=== PATIENT | male | born 1990 | race Caucasian/White ===

== ENCOUNTER 2022-05-26 18:07 | Inpatient (IN) | payer MEDICAID ==
[~2022-05-26] VITALS: Ht 180.3 cm; Wt 70.3 kg
[~2022-05-26 18:07] MED LIST: QUET100T PO; QUET200T30 PO; VENL-68 PO
[2022-05-26] MEDS ORDERED: HALOPERIDOL 5 MG TABLET PO PRN (22:15)
[2022-05-26] MEDS ORDERED: INFLUENZA VIRUS VACCINE QVS 2022-23 (6MO+)/PF 60 MCG/0.5 ML SYRINGE IM. ONE (22:30)
[2022-05-26] MEDS: LORazepam 2 MG TABLET PO PRN (22:54)
[2022-05-26] MEDS: ZOLPIDEM TARTRATE 10 MG TABLET PO PRN (22:54)
[2022-05-26 23:53] VITALS: BP 106/63
[2022-05-26 23:54] VITALS: BP 106/63
[2022-05-27] MEDS ORDERED: MIRT-92 PO (08:35)
[2022-05-27] MEDS ORDERED: OLAN20TA35 PO (08:35)
[2022-05-27] MEDS: OLANZapine 10 MG TABLET PO SCH ×2 (09:04→20:34)
[2022-05-27] MEDS: LORazepam 2 MG TABLET PO PRN ×2 (09:04→16:22)
[2022-05-27 09:09] VITALS: BP 116/74
[2022-05-27 09:51] VITALS: BP 116/74
[2022-05-27] MEDS ORDERED: GuaiFENesin/D-METHORPHAN [SUGAR-FREE] 200-20MG/10 ML SYRUP UDCUP PO PRN (10:15)
[2022-05-27] MEDS ORDERED: PHENAZOPYRIDINE HCL 100 MG TABLET PO PRN (10:15)
[2022-05-27] MEDS ORDERED: CloNIDine HCL 0.1 MG TABLET PO PRN (10:15)
[2022-05-27] MEDS ORDERED: MAG HYDROX/AL HYDROX/SIMETH ES 30 ML SUSPENSION UDCUP PO PRN (10:15)
[2022-05-27] MEDS ORDERED: LOPERAMIDE HCL 2 MG CAPSULE PO PRN (10:15)
[2022-05-27] MEDS ORDERED: DOCUSATE SODIUM 100 MG CAPSULE PO PRN (10:15)
[2022-05-27] MEDS ORDERED: IBUPROFEN 400 MG TABLET PO PRN (10:15)
[2022-05-27] MEDS ORDERED: MAGNESIUM HYDROXIDE SUSPENSION 30 ML UDCUP PO PRN (10:15)
[2022-05-27] MEDS ORDERED: ACETAMINOPHEN 325 MG TABLET PO PRN (10:15)
[2022-05-27] MEDS ORDERED: PETROLATUM,WHITE 28 GM JELLY TP PRN (10:15)
[2022-05-27] MEDS ORDERED: ALBUTEROL SULFATE HFA 90 MCG/PUFF 8 GM INHALER IH PRN (10:15)
[2022-05-27] MEDS ORDERED: NICOTINE 14 MG/24 HOUR PATCH TD PRN (10:15)
[2022-05-27] MEDS ORDERED: ONDANSETRON HCL 4 MG TABLET PO PRN (10:15)
[2022-05-27] MEDS: CEPHALEXIN MONOHYDRATE 500 MG CAPSULE PO SCH ×2 (16:22→23:21)
[2022-05-27] MEDS: TOLNAFTATE 1% TP SCH (17:00)
[2022-05-27] MEDS: MIRTAZAPINE 15 MG TABLET PO SCH (20:34)
[2022-05-27] MEDS: ZOLPIDEM TARTRATE 10 MG TABLET PO PRN (20:34)
[2022-05-27 20:43] VITALS: BP 118/75
[2022-05-28] MEDS: LORazepam 2 MG TABLET PO PRN ×3 (06:12→17:34)
[2022-05-28 07:03] LABS: BASOPHILS % (AUTO) 1.1 % (0.0-2.0); EOSINOPHILS % (AUTO) 4.5 % (1.0-6.0); HEMATOCRIT 39.4 % (41-53); HEMOGLOBIN 13.1 g/dL (13.5-17.5); LYMPHOCYTES % (AUTO) 49.1 % (22.0-44.0); MEAN CORPUSCULAR HEMOGLOBIN 30.1 pg (26.0-34.0); MEAN CORPUSCULAR HGB CONC 33.3 G/dL (31.0-37.0); MEAN CORPUSCULAR VOLUME 90 fL (80-100); MONOCYTES # (AUTO) 0.4 K/uL (0.1-1.0); MONOCYTES % (AUTO) 6.7 % (2.0-9.0); NEUTROPHILS # (AUTO) 2.4 K/uL (1.8-7.7); NEUTROPHILS % (AUTO) 38.6 % (40.0-70.0); PLATELET COUNT (AUTO) 319 K/uL (150-450); RED BLOOD CELL COUNT(AUTO) 4.36 MIL/uL (4.50-5.90); RED CELL DISTRIBUTION WIDTH 13.4 % (11.5-14.5)
[2022-05-28 07:17] LABS: HEMOGLOBIN A1C 5.1 % (3.8-5.6)
[2022-05-28 07:31] LABS: ALANINE AMINOTRANSFERASE 35 U/L (12-78); ALBUMIN 3.3 g/dL (3.4-5.0); ALKALINE PHOSPHATASE 66 U/L (46-116); ANION GAP 4 mmol/L (8-16); ASPARTATE AMINOTRANSFERASE 11 U/L (15-37); BILIRUBIN,TOTAL 0.1 mg/dL (0.1-1.0); CALCIUM, TOTAL 8.7 mg/dL (8.8-10.5); CARBON DIOXIDE 30 mmol/L (22-29); CHLORIDE 107 mmol/L (98-107); CHOLESTEROL 148 mg/dL (131-200); CREATININE 0.75 mg/dL (0.60-1.30); FREE T4 (FREE THYROXINE) 1.17 ng/dL (0.76-1.46); GLUCOSE,RANDOM 92 mg/dL (70-110); HDL CHOLESTEROL 49 mg/dL (40-60); LDL CHOL (CALC.) 92 mg/dL (0-130); POTASSIUM 4.2 mmol/L (3.5-5.1); SODIUM SERUM 141 mmol/L (136-145); THYROID STIMULATING HORMONE 0.94 uIU/mL (0.36-3.74); TOTAL PROTEIN, SERUM 6.5 g/dL (6.4-8.2); TRIGLYCERIDES 37 mg/dL (15-150); UREA NITROGEN, BLOOD 13 mg/dL (7-18)
[2022-05-28 07:32] LABS: GLOMERULAR FILTR. RATE CALC > 60 mL/min (>60)
[2022-05-28] MEDS: CEPHALEXIN MONOHYDRATE 500 MG CAPSULE PO SCH ×2 (08:27→16:43)
[2022-05-28] MEDS: OLANZapine 10 MG TABLET PO SCH ×2 (08:27→20:25)
[2022-05-28] MEDS: TOLNAFTATE 1% TP SCH ×2 (09:15→16:44)
[2022-05-28 16:36] LABS: GLUCOMETER DEV NAME(LOC) POC.BV
[2022-05-28] MEDS: ZOLPIDEM TARTRATE 10 MG TABLET PO PRN (20:26)
[2022-05-28] MEDS: MIRTAZAPINE 15 MG TABLET PO SCH (20:26)
[2022-05-28 21:17] VITALS: BP 100/61
[2022-05-29] MEDS: CEPHALEXIN MONOHYDRATE 500 MG CAPSULE PO SCH ×3 (02:15→16:18)
[2022-05-29] MEDS: LORazepam 2 MG TABLET PO PRN ×4 (02:18→20:16)
[2022-05-29] MEDS: OLANZapine 10 MG TABLET PO SCH ×2 (08:34→20:15)
[2022-05-29] MEDS: TOLNAFTATE 1% TP SCH ×2 (08:34→16:18)
[2022-05-29 10:32] VITALS: BP 114/61
[2022-05-29] MEDS: MIRTAZAPINE 15 MG TABLET PO SCH (20:16)
[2022-05-29] MEDS: ZOLPIDEM TARTRATE 10 MG TABLET PO PRN (20:16)
[2022-05-29 22:44] VITALS: BP 117/60
[2022-05-30] MEDS: CEPHALEXIN MONOHYDRATE 500 MG CAPSULE PO SCH ×4 (00:03→16:35)
[2022-05-30] MEDS: OLANZapine 10 MG TABLET PO SCH ×2 (08:12→20:11)
[2022-05-30] MEDS: LORazepam 2 MG TABLET PO PRN ×2 (08:12→15:49)
[2022-05-30] MEDS: TOLNAFTATE 1% TP SCH ×2 (08:13→16:36)
[2022-05-30 08:18] VITALS: BP 118/70
[2022-05-30] MEDS: MIRTAZAPINE 15 MG TABLET PO SCH (20:11)
[2022-05-30 20:38] VITALS: BP 105/62
[2022-05-30] MEDS: ZOLPIDEM TARTRATE 10 MG TABLET PO PRN (21:16)
[2022-05-31] MEDS: CEPHALEXIN MONOHYDRATE 500 MG CAPSULE PO SCH ×3 (00:39→15:55)
[2022-05-31] MEDS: LORazepam 2 MG TABLET PO PRN ×3 (07:47→20:24)
[2022-05-31] MEDS: OLANZapine 10 MG TABLET PO SCH ×2 (08:07→20:25)
[2022-05-31] MEDS: TOLNAFTATE 1% TP SCH ×2 (08:08→15:57)
[2022-05-31 08:12] VITALS: BP 120/64
[2022-05-31] MEDS ORDERED: MIRT-89 PO (10:50)
[2022-05-31] MEDS ORDERED: OLAN10TA74 PO (10:50)
[2022-05-31] MEDS: MIRTAZAPINE 15 MG TABLET PO SCH (20:25)
[2022-05-31 21:26] VITALS: BP 115/74
[2022-05-31] MEDS: ZOLPIDEM TARTRATE 10 MG TABLET PO PRN (21:40)
[2022-06-01] MEDS: CEPHALEXIN MONOHYDRATE 500 MG CAPSULE PO SCH ×3 (00:16→16:22)
[2022-06-01] MEDS: LORazepam 2 MG TABLET PO PRN ×4 (01:44→16:22)
[2022-06-01] MEDS: OLANZapine 10 MG TABLET PO SCH ×2 (08:20→20:24)
[2022-06-01 08:44] VITALS: BP 128/79
[2022-06-01] MEDS: TOLNAFTATE 1% TP SCH ×3 (09:50→17:20)
[2022-06-01] MEDS: CYCLOBENZAPRINE HCL 10 MG TABLET PO PRN (16:22)
[2022-06-01 20:17] VITALS: BP 118/70
[2022-06-01] MEDS: MIRTAZAPINE 15 MG TABLET PO SCH (20:24)
[2022-06-01] MEDS: ZOLPIDEM TARTRATE 10 MG TABLET PO PRN (20:24)
[2022-06-02] MEDS: LORazepam 2 MG TABLET PO PRN ×4 (00:42→16:55)
[2022-06-02] MEDS: CEPHALEXIN MONOHYDRATE 500 MG CAPSULE PO SCH ×3 (00:43→16:31)
[2022-06-02] MEDS: TOLNAFTATE 1% TP SCH ×3 (09:00→16:56)
[2022-06-02] MEDS: OLANZapine 10 MG TABLET PO SCH ×2 (09:25→20:23)
[2022-06-02] MEDS: CYCLOBENZAPRINE HCL 10 MG TABLET PO PRN (09:50)
[2022-06-02 10:46] VITALS: BP 111/73
[2022-06-02 20:17] VITALS: BP 11/68
[2022-06-02] MEDS: MIRTAZAPINE 15 MG TABLET PO SCH (20:23)
[2022-06-02] MEDS: ZOLPIDEM TARTRATE 10 MG TABLET PO PRN (20:23)
[2022-06-03] MEDS: OLANZapine 10 MG TABLET PO SCH (08:13)
[2022-06-03] MEDS: CEPHALEXIN MONOHYDRATE 500 MG CAPSULE PO SCH ×2 (08:13)
[2022-06-03] MEDS: TOLNAFTATE 1% TP SCH (08:21)
[2022-06-03] MEDS ORDERED: OLAN10 PO (09:06)
[2022-06-03] MEDS ORDERED: MIRT-89 PO ×2 (09:06→09:07)
[2022-06-03] MEDS ORDERED: LORazepam 2 MG TABLET PO PRN (10:15)
== END 2022-06-03 10:07 | disposition home or self-care (01) | DRG 750 ==
LOC: B3A 22:12
PROVIDERS: ADMIT Psychiatry & Neurology Psychiatry; ATTEND Psychiatry & Neurology Psychiatry
DX: F20.0 Paranoid schizophrenia (principal); B35.1 Tinea unguium; D64.9 Anemia, unspecified; F12.10 Cannabis abuse, uncomplicated; F17.200 Nicotine dependence, unspecified, uncomplicated; Z20.822 Contact with and (suspected) exposure to COVID-19; F32.A Depression, unspecified; Z59.00 Homelessness unspecified; Z79.899 Other long term (current) drug therapy
CPT/HCPCS: 80053; 80061; 83036; 84439; 84443; 85025; 87086; 87186